=== PATIENT | male | born 1985 | race Caucasian/White ===

== ENCOUNTER → 2021-05-10 | Outpatient (CLI) | payer SELFPAY ==
[~2021-05-10] MED LIST: MUCI30TA5 PO; OMEP1CAP73 PO
--- NOTE | 2021-05-10 16:52 | REP ---
INDICATION: CONTUSION OF LEFT LOWER LEG, INITIAL ENCOUNTER. COMPARISON: None. TECHNIQUE: AP and lateral views FINDINGS: No acute fracture or destructive osseous lesion. IMPRESSION: No osseous abnormality. <Electronically signed by Wally Estrada > 05/10/21 [id number]
== END ==
LOC: M RAD 16:25
PROVIDERS: ATTEND Physician Assistant
DX: S80.12XA Contusion of left lower leg, initial encounter (principal); X58.XXXA Exposure to other specified factors, initial encounter; Y92.9 Unspecified place or not applicable; Y93.9 Activity, unspecified; Y99.9 Unspecified external cause status

== ENCOUNTER 2022-04-16 02:23 | Emergency (ER) | payer SELFPAY ==
[~2022-04-16] VITALS: Ht 172.7 cm; Wt 84.1 kg
[2022-04-16 02:27] VITALS: BP 150/100
[2022-04-16] MEDS ORDERED: AMOX875T2 PO (19:11)
== END 2022-04-16 05:42 | disposition left against medical advice (07) ==
LOC: M ED 02:23 → EDBD 02:23 → M ED 05:42
DX: Z53.21 Procedure and treatment not carried out due to patient leaving prior to being seen by health care provider (principal)

== ENCOUNTER 2022-04-16 15:36 | Emergency (ER) | payer SELFPAY ==
[~2022-04-16] VITALS: Ht 172.7 cm; Wt 81.4 kg
[2022-04-16] MEDS ORDERED: AMOX875T2 PO (19:11)
[2022-04-16 19:15] VITALS: BP 142/78
== END 2022-04-16 19:25 | disposition home or self-care (01) ==
LOC: M ED 15:36
DX: S00.83XA Contusion of other part of head, initial encounter (principal); Y04.8XXA Assault by other bodily force, initial encounter; Y92.89 Other specified places as the place of occurrence of the external cause; F17.200 Nicotine dependence, unspecified, uncomplicated; F12.10 Cannabis abuse, uncomplicated

== ENCOUNTER → 2023-10-08 | Outpatient (CLI) | payer SELFPAY ==
[~2023-10-08] MED LIST changes: +AMOX875T2 PO
[2023-10-08 16:53] LABS: BASO % 0.3 % (0.0-1.0); EOS # 0.2 10^3/uL (0.0-0.5); EOS % 1.7 % (0.0-3.0); HEMATOCRIT 46.1 % (42.0-52.0); HEMOGLOBIN 15.5 g/dl (13.5-17.5); LYMPH # 2.9 10^3/uL (1.5-5.0); LYMPH % 25.3 % (24.0-44.0); MEAN CORPUSCULAR HEMOGLOBIN 29.9 pg (27.0-33.0); MEAN CORPUSCULAR HGB CONC 33.6 g/dl (32.0-36.5); MONO # 0.9 10^3/uL (0.0-0.8); NEUTROPHILS # 7.4 10^3/uL (1.5-8.5); NEUTROPHILS % 64.4 % (36.0-66.0); PLATELET COUNT, AUTOMATED 341 10^3/uL (150-450); RED BLOOD COUNT 5.18 10^6/uL (4.30-6.10); WHITE BLOOD COUNT 11.5 10^3/uL (4.0-10.0)
[2023-10-08 17:32] LABS: MONO SCRN NEGATIVE (NEGATIVE)
== END ==
LOC: M WUC 14:38
PROVIDERS: ATTEND Nurse Practitioner Family
DX: R59.0 Localized enlarged lymph nodes (principal)

== ENCOUNTER → 2024-03-05 | Outpatient (CLI) | payer OTHER ==
[~2024-03-05] MED LIST changes: +ISOVUE-370 76% 100ML VIAL As Ordered ONE
== END ==
LOC: M RAD 08:17
PROVIDERS: ATTEND Otolaryngology
DX: R22.1 Localized swelling, mass and lump, neck (principal)
CPT/HCPCS: 70491; Q9967

== ENCOUNTER → 2024-03-21 | Outpatient (REF) | payer OTHER ==
[~2024-03-21] MED LIST changes: -ISOVUE-370 76% 100ML VIAL As Ordered ONE
== END ==
LOC: M LAB REF 07:52
PROVIDERS: ATTEND Otolaryngology
DX: R22.1 Localized swelling, mass and lump, neck (principal)

== ENCOUNTER 2025-01-16 20:31 | Emergency (ER) | payer OTHER ==
[~2025-01-16] VITALS: Ht 172.7 cm; Wt 83.8 kg
[2025-01-16 22:34] VITALS: TEMP 99.5
[2025-01-17 01:30] VITALS: BP 137/88; O2SAT 94
== END 2025-01-17 01:44 | disposition home or self-care (01) ==
LOC: M ED 01-17
DX: S61.211A Laceration without foreign body of left index finger without damage to nail, initial encounter (principal); X58.XXXA Exposure to other specified factors, initial encounter; Y92.009 Unspecified place in unspecified non-institutional (private) residence as the place of occurrence of the external cause; Y93.9 Activity, unspecified; Y99.9 Unspecified external cause status; F17.200 Nicotine dependence, unspecified, uncomplicated